=== PATIENT | female | born 1950 | race Caucasian/White ===

== ENCOUNTER 2017-03-30 17:34 | Emergency (ER) | payer OTHER ==
[~2017-03-30] VITALS: Ht 165.1 cm; Wt 59.0 kg
[~2017-03-30 17:34] MED LIST: CALCIUM 600600 M1 PO; MASON NATURAL2000 IU PO; MULTIVITAMIN1 TAB PO; VITAMIN C500 M3 PO
--- NOTE | 2017-03-30 17:58 | ED GI/GU/ABDOMINAL COMPLAINT ---
History of Present Illness General Chief Complaint: Female Urogenital Problems Stated Complaint: ?UTI Source: patient Exam Limitations: no limitations Vital Signs & Intake/Output Vital Signs & Intake/Output Vital Signs Date Time Temp Pulse Resp B/P B/P Pulse O2 O2 Flow FiO2 Mean Ox Delivery Rate 03/30 1915 98.1 70 18 126/83 98 Room Air 03/30 1814 97.8 66 20 122/78 96 Room Air 03/30 1741 97.7 61 16 135/81 95 Room Air Allergies Coded Allergies: MDX - PCN (penicillin) (PCN (PENICILLIN)) (ANAPHYLAXIS 12/07/15) MDX - Penicillin (PENICILLIN) (THROAT SWELLING 12/20/15) Reconcile Medications Ascorbic Acid (Vitamin C) (Unknown Strength) TAB (Unknown Dose) PO DAILY SUPPLEMENT (Reported) Calcium Carbonate (Calcium 600) (Unknown Strength) TAB (Unknown Dose) PO DAILY SUPPLEMENT (Reported) CHOLECALCIFEROL (VITAMIN D3) (Vitamin D) (Unknown Strength) SGL (Unknown Dose) PO DAILY SUPPLEMENT (Reported) Multivitamin (Multiple Vitamins) 1 TAB TAB 1 TAB PO DAILY SUPPLEMENT ( Reported) Triage Note: PT STATES SHE TOOK A HOME TEST FOR A UTI. PT REPORTS FREQUENCY AND PRESSURE WHEN SHE URINATES. Triage Nurses Notes Reviewed? yes ? N Is pt currently ? No Onset: Gradual Duration: constant Timing: recent history Quality/Severity: mild Severity Numbers: 3 HPI: Patient is a 66-year-old female who presents to emergency room stating that 2 weeks ago patient was evaluated by oral surgeon for a tooth removal of the left upper molar region where she was initially given azithromycin patient had a follow-up a week later where the surgeon was still concerned of incomplete dental extraction and swelling and infection where the azithromycin was prolonged for a prescription patient follow up this week with the oral surgeon and was given clindamycin. This was administered 2 days ago and patient began a gradual onset of a 2 day history of increased frequency of urination. Patient is concerned of urinary tract infection. Patient denies any fever chills nausea vomiting back pain vaginal bleeding vaginal discharges dysuria or hematuria. Patient is able tolerate by mouth. Patient states that she has no change in symptoms of her dental pain or swelling. Past History Travel History Traveled to [place] past 21 day No Medical History Any Pertinent Medical History? none Surgical History Surgical History: non-contributory Psychosocial History What is your primary language [place] Tobacco Use: Current Daily Use Daily Tobacco Use Amount/Type: => 5 Cigarettes daily ETOH Use: occasional use Illicit Drug Use: denies illicit drug use Family History Hx Contributory? No Review of Systems Review of Systems Constitutional: Reports: no symptoms. EENTM: Reports: see HPI. Respiratory: Reports: no symptoms. Cardiovascular: Reports: no symptoms. GI: Reports: no symptoms. Genitourinary: Reports: see HPI, frequency, urgency. Musculoskeletal: Reports: no symptoms. Skin: Reports: no symptoms. Neurological/Psychological: Reports: no symptoms. Hematologic/Endocrine: Reports: no symptoms. Immunologic/Allergic: Reports: no symptoms. All Other Systems: Reviewed and Negative Physical Exam Physical Exam General Appearance: no apparent distress, alert Gastrointestinal: normal bowel sounds, soft, non-tender, no organomegaly Comments: Well-developed well-nourished person in no acute distress Neck: Supple, no lymphadenopathy, normal range of motion without pain or tenderness MOUTH- noted left upper molar region around tooth #15 WHICH WAS REMOVED, mild surrounding tenderness and gum swelling no active bleeding Back: Nontender, no CVA tenderness. Abdomen: Soft, nontender nondistended, no appreciable organomegaly. Normal bowel sounds. No ascites Extremity: No edema, no calf tenderness to palpation, normal and equal pulses. Neuro: Alert oriented x3, motor sensory normal, Skin: No appreciable rash on exposed skin, skin is warm and dry. Psych: Mood and affect is normal, memory and judgment is normal. Core Measures ACS in differential dx? No Severe Sepsis Present: No Septic Shock Present: No Progress Differential Diagnosis: AAA, AMI, appendicitis, biliary colic, bowel obstruction , colon cancer, cholecystitis, diverticulitis, endometritis, esophageal varices, gastritis, ischemic bowel, inflamm bowel dis, kidney stone, ovarian cyst, ovarian torsion, pancreatitis, PID/cervicitis, peptic ulcer, PUD/GERD, perforated viscous, SBO, UTI/pyelo Plan of Care: Orders Procedure Date/time Status CULTURE,URINE 03/30 1744 Active URINALYSIS 03/30 1744 Complete Laboratory Tests 03/30/171815: Urine Color YEL, Urine Clarity CLEAR, Urine pH 6.0, Ur Specific [place] <= 1.005 , Urine Protein NEG, Urine Ketones NEG, Urine Nitrite NEG, Urine Bilirubin NEG, Urine Urobilinogen 0.2, Ur Leukocyte Esterase TRACE H, Ur Microscopic SEDIMENT EXAMINED, Urine RBC 1-3, Ur Epithelial Cells RARE, Urine Bacteria FEW H, Urine Hemoglobin TRACE-INTACT, Urine Glucose NEG Microbiology 03/30 1816 URINE ROUT: Urine Culture - RECD Patient currently is afebrile nontoxic appearing nontender abdomen No CVA tenderness no trismus Patient had unremarkable urine analysis Patient has concerns of increased frequency of urination and patient also states that in the past 2 days she's had significant increase of water hydration replenishment. Patient's blood glucose was 73 and no concerns of diabetes patient has nontender abdomen patient was given Diflucan for current administration of antibiotics. (PACO ADDISON,SRINIVAS) Initial ED EKG: none Departure Departure Disposition: HOME OR SELF CARE Condition: Stable Clinical Impression Primary Impression: Polyuria Referrals: JESSEE RAMIREZ MD (PCP/Family) Additional Instructions: As discussed begin the prescription of Diflucan for use of antibiotics. If symptoms worsen return to emergency room. Follow-up with your primary care doctor on Saturday if no better. Departure Forms: Customer Survey General Discharge Information
[2017-03-30 19:15] VITALS: BP 126/83
== END 2017-03-30 19:22 ==
LOC: ERH 17:34
DX: R35.8 Other polyuria (principal)
CPT/HCPCS: 81001; 87086